=== PATIENT | male | born 1965 | race Caucasian/White ===

== ENCOUNTER 2018-01-30 11:04 | Outpatient (CLI) | payer OTHER ==
--- NOTE | 2018-01-30 13:36 | RAD ---
FOUR VIEW CERVICAL SPINE: Date: 01-30-18 Comparison: 02-07-17 History: Cervical herniated disc, cervical region disc degeneration. FINDINGS: The open mouth odontoid view demonstrates a normal appearing dens and C1-2 articulation. Anterior discectomy and fusion hardware is present at C3-4-5, stable. Posterior pedicle screw on the right noted at C2, C4, and C5 with a vertically oriented interlocking nate. The C4 screw is fractured, a stable finding when compared to 02-07-17 examination. There is mild posterior osteophyte formation at C3-4. No significant anterolisthesis or retrolisthesi s noted. Bilateral laminectomy changes are noted at C3, C4, and C5. Cervicothoracic junction demonstr ates no acute findings on the provided swimmer's lateral view. There is prominent multilevel facet an d uncal vertebral osteophyte formation, left greater than right, involving the C2-3 level through the C6-7 level. IMPRESSION: Extensive post-operative and degenerative change involving the cervical spine as described above. POS: [facility]
== END 2018-01-30 11:05 | disposition home or self-care (01) ==
LOC: TBSIIMAG 11:04
PROVIDERS: ATTEND Neurological Surgery
DX: M50.30 Other cervical disc degeneration, unspecified cervical region (principal); M47.22 Other spondylosis with radiculopathy, cervical region; Z98.1 Arthrodesis status; Z98.890 Other specified postprocedural states
CPT/HCPCS: 72040

== ENCOUNTER 2018-12-18 12:40 | Day surgery (SDC) | payer OTHER ==
[2018-12-18] MEDS ORDERED: Ondansetron PF 4 MG/2 ML Vial ONE (13:43)
[2018-12-18] MEDS ORDERED: PROPOFOL 200 MG/20 ML VIAL ONE (13:43)
[2018-12-18] MEDS ORDERED: CEFAZOLIN 1 GM VIAL ONE (13:54)
[2018-12-18] MEDS ORDERED: Sodium Chloride 0.9% 100 ML ONE (13:54)
[2018-12-18 14:01] LABS: Anion Gap 15 mmol/L (10-20); BUN (Urea Nitrogen) 23 mg/dL (8.4-25.7); Calc. Creatinine Clearance 0 mL/min (70-130); Calcium 9.7 mg/dL (7.8-10.44); Carbon Dioxide 23 mmol/L (22-29); Chloride 104 mmol/L (98-107); Estimated GFR-MDRD 54; Glucose 100 mg/dL (70-105); Potassium 4.5 mmol/L (3.5-5.1); Sodium 137 mmol/L (136-145)
[2018-12-18] MEDS ORDERED: Morphine 4 MG/ML VIAL ONE ×2 (14:35→18:51)
[2018-12-18] MEDS ORDERED: Bupivacaine HCl 0.5%/Epinephrine 1:200,000/PF 30 ml Vial ONE ×2 (15:30→16:30)
[2018-12-18] MEDS ORDERED: Sodium Chloride 0.9% 0 ML ONE (15:41)
[2018-12-18] MEDS ORDERED: Fentanyl 100 MCG/2 ML VIAL ONE (15:48)
[2018-12-18] MEDS ORDERED: Propofol 500 MG/50 ML VIAL ONE (15:51)
[2018-12-18] MEDS ORDERED: Propofol 1,000 MG/100 ML VIAL IV ONE (17:28)
--- NOTE | 2018-12-19 01:29 | OP ---
DATE OF PROCEDURE: 12/18/2018 PREOPERATIVE DIAGNOSES: 1. Postlaminectomy syndrome. 2. Chronic pain syndrome. 3. Cervical radiculopathy. POSTOPERATIVE DIAGNOSES: 1. Postlaminectomy syndrome. 2. Chronic pain syndrome. 3. Cervical radiculopathy. PROCEDURES PERFORMED: 1. Spinal cord stimulator generator implant. 2. Spinal cord stimulator lead implant x2. 3. Programming. 4. Fluoroscopy. ESTIMATED BLOOD LOSS: 100 mL. SUMMARY OF PROCEDURE: The patient was taken to the operating room and placed prone on the operating room table. A time-out was performed. The back was prepped with ChloraPrep, and sterile drapes were applied, Ioban was applied. Using fluoroscopy, we located the interspace of T6-7. We had anesthetized the skin with 0.5% Marcaine with epinephrine in a vertical pattern. A 10-blade scalpel was used to make an incision for the skin, this was blunt dissected down to fascia. A 14-gauge supplied Tuohy needle was inserted on a paramedian technique to the interspinous ligament of T6-7. We used loss of resistance to air to achieve access to the epidural space. There was negative aspiration for heme or CSF. We then threaded an 8-contact 90 cm lead through the needle into the epidural space and threaded it midline dorsal under continuous fluoroscopy up until C6 midline, another lead was placed in the exact same fashion on the contralateral side and this was placed to the right of the previous lead. Stimulation was attempted while the patient was awake, however, the patient was moving too much and became aggressive; therefore, the patient was placed back under anesthesia. Trial images were checked and the leads were in the exact same place, therefore, we decided to proceed with implant. The skin above the left buttock was anesthetized with Marcaine, 10-blade scalpel was used to make a horizontal incision, this was blunt dissected down the Maria Del Carmen's fascia. This was dissected inferiorly and superiorly. A tunneling device was then used to create a tunnel between the 2 incisions. The needles were then removed, keeping the leads in place. Anchors were placed over the leads and clicked to connect to the lead. A 2-0 silk suture was used to fixate the leads down to fascia x2 for each lead. The leads were placed through tunneling device and advanced all the way into the battery pocket. A tension relief loop was placed at the anchor sites with 2-0 silk suture. Leads were connected to the battery. The patient had a significant amount of oozing in the battery pocket site. Attempts were made to locate the source of bleeding, however, this was just diffuse venous bleeding. Surgicel x2 was placed inside the pocket. The battery was placed inside the pocket and the bleeding slowed down. A 2-0 Vicryl suture was used in a simple interrupted fashion to approximate both incisions, 3-0 Monocryl was then used to approximate the skin in a subcuticular stitch, Dermabond was placed over this. Pressure dressing was placed over the battery site. The patient was taken to PACU under stable conditions. No apparent complications were noted at this time. Job ID: [id number]
--- NOTE | 2018-12-19 08:04 | RAD ---
SINGLE AP FLUOROSCOPIC IMAGE OF THE CERVICAL SPINE: 12/18/2018 HISTORY: Pain pump. COMPARISON: Views of the cervical spine from 01/30/2018. FLUOROSCOPY: Total fluoroscopy time is 5 minutes 9 seconds with a total accumulative dose of 61.8 mGy (15.7 Gy cm2 ). POS: [facility]
== END 2018-12-18 20:05 | disposition home or self-care (01) ==
LOC: SDC 12:40
PROVIDERS: ATTEND Specialist
PROC: 0JH70DZ Insertion of Multiple Array Stimulator Generator into Back Subcutaneous Tissue and Fascia, Open Approach (ICD-10-PCS; principal; 2018-12-18)
PROC: 00HU3MZ Insertion of Neurostimulator Lead into Spinal Canal, Percutaneous Approach (ICD-10-PCS; principal; 2018-12-18)
DX: M96.1 Postlaminectomy syndrome, not elsewhere classified (principal); M47.22 Other spondylosis with radiculopathy, cervical region; G89.4 Chronic pain syndrome; M48.02 Spinal stenosis, cervical region; K21.9 Gastro-esophageal reflux disease without esophagitis; F32.9 Major depressive disorder, single episode, unspecified; E78.5 Hyperlipidemia, unspecified; I10 Essential (primary) hypertension; E11.9 Type 2 diabetes mellitus without complications; Z79.4 Long term (current) use of insulin; Z79.891 Long term (current) use of opiate analgesic; Z79.899 Other long term (current) drug therapy
CPT/HCPCS: 36415; 72020; 76000; 80048; 93005; 93010; C1767; J0670; J0690; J2270; J2405; J2704; J3010; J7050